=== PATIENT | female | born 1925 | race Caucasian/White ===

== ENCOUNTER 2016-09-14 10:27 | Inpatient (IN) | payer MEDICARE, BC ==
[~2016-09-14] VITALS: Ht 154.9 cm; Wt 53.1 kg
[2016-09-14] MEDS ORDERED: IV NS 0.9% 500 ML BAG IV ONE (10:30)
--- NOTE | 2016-09-14 10:33 | NUR ---
BIB RA FROM HOME FOR SYNCOPE, ASSISTED TO GROUND, PATIENT HAD NO TRAUMA, PATIENT IS VERBALLY RESPONSIVE BUT CONFUSED WITH BASELINE DEMENTIA, PATIENT IS PLACED ON BED WITH MONITOR, NO RESPIRATORY DISTRESS, NO COMPLAINTS OF CHEST PAIN, MD AT BEDSIDE UPON ARRIVAL, WILL CONTINUE TO MONITOR CLOSELY.
[2016-09-14] MEDS ORDERED: IV NS 0.9% 500 ML IV ONE (10:34)
[2016-09-14] MEDS ORDERED: IV SET PRIMARY 1 EA INFUS.SET MC ONE (10:34)
[2016-09-14 10:46] LABS: BASOPHILS # (AUTO) 0.1 /CMM (0.0-0.2); BASOPHILS % (AUTO) 0.4 % (0.0-2.0); EOSINOPHILS # (AUTO) 0.1 /CMM (0.0-0.7); EOSINOPHILS % (AUTO) 0.4 % (0.0-6.0); HEMATOCRIT 41 % (33-45); HEMOGLOBIN 13.4 g/dL (11.5-14.8); LYMPHOCYTES # (AUTO) 1.4 /CMM (0.8-4.8); LYMPHOCYTES % (AUTO) 8.7 % (20.0-44.0); MEAN CORPUSCULAR HEMOGLOBIN 26 PG (26.0-33.0); MEAN CORPUSCULAR HGB CONC 33 g/dl (31.0-36.0); MEAN CORPUSCULAR VOLUME 77 fL (82-100); MONOCYTES # (AUTO) 1.5 /CMM (0.1-1.30); MONOCYTES % (AUTO) 9.3 % (2.0-12.0); NEUTROPHILS # (AUTO) 13.5 /CMM (1.8-8.9); NEUTROPHILS % (AUTO) 81.2 % (43.0-81.0); PLATELET COUNT (AUTO) 376 /CMM (150-450); RDW COEFFICIENT OF VARIATION 15.2 (11.5-15.0); RED BLOOD CELL COUNT(AUTO) 5.25 MIL/uL (4.0-5.2); WHITE BLOOD COUNT (AUTO) 16.6 K/uL (4.3-11.0)
[2016-09-14 11:07] LABS: CALCIUM, SERUM 9.4 mg/dL (8.5-10.1); CARBON DIOXIDE 26 mmol/L (21-32); CHLORIDE 100 mmol/L (98-107); GLUCOSE 162 mg/dL (74-106); POTASSIUM 3.8 mmol/L (3.5-5.1); SODIUM SERUM 136 mmol/L (136-145); UREA NITROGEN, BLOOD 17 mg/dL (7-18)
--- NOTE | 2016-09-14 11:08 | NUR ---
SPOKE WITH DAUGHTER, NO HOUSEKEEPING MANAGER WILL BE VISITING PATIENT, SON IN LAW WILL BE VISITING FROM [place] SOON POSSIBLE
[2016-09-14 11:11] LABS: INR 1.04 (0.87-1.13); PROTHROMBIN TIME 10.8 SECS (9.5-12.7)
[2016-09-14 11:12] LABS: APPEARANCE,URINE Clear (CLEAR); BILIRUBIN,URINE Negative (NEGATIVE); BLOOD, URINE Trace-intact Ery/uL (NEGATIVE); COLOR,URINE Yellow (YELLOW); KETONES,URINE Negative (NEGATIVE); LEUKOCYTE ESTERASE ,URINE Negative (NEGATIVE); NITRITE, URINE Negative (NEGATIVE); PROTEIN,URINE 30 mg/dl (NEGATIVE); UGLUCOSE Negative (NEGATIVE)
[2016-09-14 11:12] LABS: ALANINE AMINOTRANSFERASE 10 U/L (12-78); ALBUMIN 3.2 g/dL (3.4-5.0); ALKALINE PHOSPHATASE 69 U/L (46-116); ASPARTATE AMINOTRANSFERASE 15 U/L (15-37); BILIRUBIN,DIRECT 0.1 mg/dL (0.0-0.2); BILIRUBIN,TOTAL 0.6 mg/dL (0.2-1.0); TOTAL PROTEIN, SERUM 8.6 g/dL (6.4-8.2)
[2016-09-14] MEDS ORDERED: DONE5TAB34 PO (11:13)
[2016-09-14] MEDS ORDERED: SERT25TA PO (11:13)
[2016-09-14] MEDS ORDERED: ATOR10TA PO (11:13)
[2016-09-14] MEDS ORDERED: LEVO88TA5 PO (11:13)
[2016-09-14] MEDS ORDERED: MEMA10TA PO (11:13)
[2016-09-14 11:14] LABS: TROPONIN I < 0.017 ng/mL (0.00-0.056)
[2016-09-14 11:18] LABS: BACTERIA,URINE Few /HPF (None Seen); SQUAMOUS EPITHELIAL CELL,UR Few /HPF (None Seen)
--- NOTE | 2016-09-14 11:22 | NUR ---
CALLED NURSING SUP. FOR TELE BED
--- NOTE | 2016-09-14 12:20 | NUR ---
CALLED [facility] [phone] KENIA PAGED
[2016-09-14 12:26] LABS: LYMPHOCYTES % (MANUAL) 7 % (16-48); MONOCYTES % (MANUAL) 3 % (0-11.0); NEUTROPHILS % (MANUAL) 90 (42-76)
--- NOTE | 2016-09-14 13:00 | NUR ---
RN INITIAL NOTES PT IN BED, A/O X1, CONFUSED, FOLLOWS COMMANDS. ON RA, TOLERATING WELL, NO SOB, NO SIGNS OF DISTRESS/PAIN. SKIN CDI, NO OPEN WOUNDS. IV ON LAC 20G, CDI, NO SIGNS OF INFECTION/INFILTRATION. CALL LIGHT WITHIN EASY REACH, SAFETY MEASURES MAINTAINED, WILL CONTINUE TO MONITOR AND FOLLOW MD ORDERS. PT IN OVERALL STABLE CONDITION. STEP SON AT BEDSIDE.
[2016-09-14 13:17] VITALS: BP 151/80
[2016-09-14] MEDS ORDERED: IV SET PRIMARY PUMP SET 1 EA INFUS.SET MC ONE (13:37)
[2016-09-14] MEDS ORDERED: POTASSIUM CHLORIDE 20 MEQ TAB.PRT.SR PO SCH (14:00)
[2016-09-14 14:07] LABS: MAGNESIUM 2.1 mg/dL (1.8-2.4); PHOSPHORUS 3.8 mg/dL (2.5-4.9)
[2016-09-14 14:34] LABS: THYROID STIMULATING HORMONE 1.338 uIU/mL (0.358-3.74)
[2016-09-14 16:00] VITALS: BP 107/55
[2016-09-14] MEDS: MEMANTINE HCL 5 MG TABLET PO SCH (17:02)
[2016-09-14] MEDS: IV NS 0.9% 1,000 ML IV PRN (17:42)
[2016-09-14] MEDS ORDERED: SERTRALINE HCL 25 MG TABLET PO SCH (18:00)
--- NOTE | 2016-09-14 19:27 | NUR ---
RN CLOSING NOTES ALL MD ORDERS CARRIED OUT, IV CDI, NO SIGNS OF INFECTION/INFILTRATION, RESTRAINTS IN PLACE, TWO FINGER SPACE, GOOD CIRCULATION, CALL LIGHT WITHIN EASY REACH, SAFETY MEASURES MAINTAINED, REPORT GIVEN TO NIGHT NURSE FOR LUCIEN.
--- NOTE | 2016-09-14 19:30 | NUR ---
AVIATION SAFETY TECHNICIAN INITIAL NOTE PT RECEIVED IN BED SLEEPING WITH GRANDDAUGHTER AT BEDSIDE. A/O X1 WITH CONFUSION. NOTED WITH BILATERAL SOFT WRIST RESTRAINTS. ASSESSED CIRCULATION, CAP REFILL AND NO DISCOLORATION NOTED. PT REPOSITIONED FOR COMFORT. VITAL SIGNS TAKEN. NO C/O PAIN AT THIS TIME. IV SITE INTACT, FLUSHING AND PATENT. BED IN LOWEST POSITION, LOCKED AND BED ALARM ON. WILL CONTINUE TO MONITOR.
[2016-09-14 20:00] VITALS: BP 116/54
[2016-09-15] VITALS: BP 123/61
[2016-09-15] MEDS ORDERED: IV NS 0.9% 1,000 ML ONE (01:17)
[2016-09-15] MEDS: IV NS 0.9% 1,000 ML IV PRN (01:25)
[2016-09-15 04:00] VITALS: BP 137/73
--- NOTE | 2016-09-15 04:50 | NUR ---
RN NOTE RECEIVED PT FROM EJLENA CHAY VILLALTA FOR CONTINUITY OF CARE.
--- NOTE | 2016-09-15 04:54 | NUR ---
RN NOTE TRANSFER OF CARE TO OWEN CARTWRIGHT. GAVE REPORT FOR CONTINUITY OF CARE.
--- NOTE | 2016-09-15 05:00 | NUR ---
RN INITIAL NOTE RECEIVED PT IN NO ACUTE DISTRESS IN BED. PT IS A/O X 1 WITH PERIODS OF CONFUSION. PT IS ON RA AND TOLERATING WELL WITH O2 SAT @ 98%. PT NOT C/O ANY SOB, DIFFICULTY BREATHING OR PAIN AT THIS TIME. PT IS IN RESTRAINTS WITH POSITIVE CIRCULATION CHECK. WILL DO FREQUENT CHECKS TILL CHANGE OF SHIFT. PT HAS LAC 22G THAT IS CLEAN DRY INTACT AND PATENT WITH NS @ 100ML/HR. BED IN LOW LOCK POSITION WITH RIALS UP X 2. CALL LIGHT WITHIN REACH AND ALL SAFETY MEASURES ENSURED AND CARRIED OUT. WILL CONTINUE TO MONITOR PT.
[2016-09-15 06:42] LABS: BASOPHILS % (AUTO) 0.3 % (0.0-2.0); EOSINOPHILS # (AUTO) 0.1 /CMM (0.0-0.7); EOSINOPHILS % (AUTO) 1.1 % (0.0-6.0); HEMATOCRIT 34 % (33-45); HEMOGLOBIN 11.2 g/dL (11.5-14.8); LYMPHOCYTES % (AUTO) 18.2 % (20.0-44.0); MEAN CORPUSCULAR HEMOGLOBIN 26 PG (26.0-33.0); MEAN CORPUSCULAR HGB CONC 34 g/dl (31.0-36.0); MEAN CORPUSCULAR VOLUME 78 fL (82-100); MONOCYTES # (AUTO) 1.4 /CMM (0.1-1.30); MONOCYTES % (AUTO) 13.4 % (2.0-12.0); NEUTROPHILS # (AUTO) 7.2 /CMM (1.8-8.9); PLATELET COUNT (AUTO) 292 /CMM (150-450); RDW COEFFICIENT OF VARIATION 16.8 (11.5-15.0); RED BLOOD CELL COUNT(AUTO) 4.31 MIL/uL (4.0-5.2); WHITE BLOOD COUNT (AUTO) 10.8 K/uL (4.3-11.0)
[2016-09-15 06:50] LABS: ALANINE AMINOTRANSFERASE 14 U/L (12-78); ALBUMIN 2.3 g/dL (3.4-5.0); ALKALINE PHOSPHATASE 55 U/L (46-116); ASPARTATE AMINOTRANSFERASE 14 U/L (15-37); BILIRUBIN,TOTAL 0.5 mg/dL (0.2-1.0); CALCIUM, SERUM 8.8 mg/dL (8.5-10.1); CARBON DIOXIDE 26 mmol/L (21-32); CHLORIDE 109 mmol/L (98-107); CREATININE 0.7 mg/dL (0.6-1.3); GLUCOSE 82 mg/dL (74-106); MAGNESIUM 2.1 mg/dL (1.8-2.4); PHOSPHORUS 3.2 mg/dL (2.5-4.9); POTASSIUM 4.1 mmol/L (3.5-5.1); SODIUM SERUM 141 mmol/L (136-145); TOTAL PROTEIN, SERUM 6.9 g/dL (6.4-8.2); UREA NITROGEN, BLOOD 12 mg/dL (7-18)
[2016-09-15 06:51] LABS: TROPONIN I < 0.017 ng/mL (0.00-0.056)
[2016-09-15] MEDS ORDERED: LEVOTHYROXINE SODIUM 88 MCG TABLET PO SCH (07:30)
--- NOTE | 2016-09-15 07:35 | NUR ---
RN CLOSING NOTE PT REMAINS IN NO ACUTE DISTRESS IN BED. PT DID NOT HAVE ANY SIGNIFICANT CHANGE IN SHIFT. ALL NEEDS MET, ALL ORDERS CARRIED OUT. WILL ENDORSE CARE TO AM RN FOR CONTINUITY OF CARE.
[2016-09-15 08:00] VITALS: BP 123/64
[2016-09-15 08:04] LABS: THYROID STIMULATING HORMONE 0.535 uIU/mL (0.358-3.74)
[2016-09-15] MEDS: MEMANTINE HCL 5 MG TABLET PO SCH (08:11)
[2016-09-15] MEDS ORDERED: ATORVASTATIN 10 MG TABLET PO SCH (09:00)
[2016-09-15] MEDS ORDERED: DONEPEZIL 5 MG TABLET PO SCH (09:00)
--- NOTE | 2016-09-15 09:18 | NUR ---
RN NOTE FOUND PATIENT WITH IV REMOVED AT START OF SHIFT- UNKNOWN HOW RESTRAINTS LOOSENED, PATIENT REMOVED. DAUGHTER AT BEDSIDE. INFORMED DR. BOYLE DURING MD AM ROUNDS. SAID PATIENT IS OK WITHOUT IV AND D/C FLUIDS.
[2016-09-15 12:00] VITALS: BP_SYST 110; BP_SYST 117; BP_DIAS 50; BP_DIAS 59; BP_DIAS 64
--- NOTE | 2016-09-15 13:09 | NUR ---
discharge note Patient deemed stable for discharge. latest vital signs are WNL. orthostatic BP measured, relayed to tube coater and recorded. patient daughter is at the bedside providing continuous care this shift. Per family, patient's had an acute stroke and has AMS cannot care for the patient. Now the daughter cares for patient. daughter said they have a aquatic life laborer care center manager and a walker at home. patient's o2 sat on room air is stable. patient does not need home health nurse. patient had no respiratory distress this shift and patient had adequate urine output and a bowel movement this shift. patient ambulated with walker and PT. all paperwork including lab results, MD notes, education and medication was provided with extensive education and instructions provided. patient's daughter verbalized understanding. daughter name is Princess Ruffin and phone number is [phone]. patient's daughter refused vaccines. no IV access. patient and daughter have been provide with a taxi voucher. continuing discharge planning at this time. will document further information.
--- NOTE | 2016-09-15 14:00 | NUR ---
PATIENT LEFT ACCOMPANIED BY DAUGHTER AND V BELT CURER IN WHEELCHAIR. PHOTO OF BL LE PLACED IN CHART FOR DISCOLORATION PRESENT ON ADMISSION PER DAUGHTER BEING SEEN BY DISPENSARY CLERK OUTPATIENT. NO COMPLICATIONS UPON DISCHARGE. DAUGHTER EXPRESSED APPRECIATION AND HAS GOOD UNDERSTANDING OF PATIENT'S HEALTH.
[2016-09-17 08:08] LABS: *SPE A/G RATIO 0.8 (0.7-1.7); *SPE ALBUMIN 2.9 g/dL (2.9-4.4); *SPE ALPHA-1-GLOBULIN 0.4 g/dL (0.0-0.4); *SPE BETA GLOBULIN 0.8 g/dL (0.7-1.3); *SPE GLOBULIN, TOTAL 3.6 g/dL (2.2-3.9); *SPE M-SPIKE Not Observed g/dL (Not Observed); *SPE PROTEIN TOTAL 6.5 g/dL (6.0-8.5); *SPEGAMMA GLOBULIN 1.3 g/dL (0.4-1.8)
== END 2016-09-15 14:10 | disposition home or self-care (01) | DRG 684 ==
LOC: ER 10:29 → TELE1 12:43
PROVIDERS: ADMIT Internal Medicine Nephrology; ATTEND Internal Medicine Nephrology
DX: N17.0 Acute kidney failure with tubular necrosis (principal); E03.9 Hypothyroidism, unspecified; D72.829 Elevated white blood cell count, unspecified; E86.9 Volume depletion, unspecified; M81.0 Age-related osteoporosis without current pathological fracture; G30.9 Alzheimer's disease, unspecified; F02.80 Dementia in other diseases classified elsewhere, unspecified severity, without behavioral disturbance, psychotic disturbance, mood disturbance, and anxiety; I10 Essential (primary) hypertension; Z85.820 Personal history of malignant melanoma of skin; D50.9 Iron deficiency anemia, unspecified; I35.0 Nonrheumatic aortic (valve) stenosis; I34.0 Nonrheumatic mitral (valve) insufficiency; R55 Syncope and collapse
CPT/HCPCS: 36415; 70450-TC; 71010-TC; 80048-TC; 80053-TC; 80061-TC; 80076-TC; 81000-TC; 82306; 82728-TC; 83540-TC; 83605-TC; 83735-TC; 84100-TC; 84155; 84165; 84439-TC; 84443-TC; 84484-TC; 85025-TC; 85730-TC; 87040-TC; 87081-TC; 87086-TC; 93307-TC; 93880-TC; A4606; J7030; J7040; Z7610

== ENCOUNTER 2016-11-26 14:37 | Emergency (ER) | payer MEDICARE, BC ==
[~2016-11-26] VITALS: Ht 162.6 cm; Wt 53.1 kg
[~2016-11-26 14:37] MED LIST: ATOR10TA PO; DONE5TAB34 PO; LEVO88TA5 PO; MEMA10TA PO; SERT25TA PO
--- NOTE | 2016-11-26 14:38 | NUR ---
PT BIBRA FROM SNF TO ER BED 14. PER REPORT, WITNESSED SYNCOPE. WAS ASSISTED TO THE GROUND. NO OBVIOUS TRAUMA NOTED. HYPOTENSIVE BELT SANDER STONE. HX OF DEMENTIA. ALTERED AWAKE. PT IS COVERED W/ FECES BELT SANDER STONE. AWAITINGMD EVAL.
--- NOTE | 2016-11-26 14:40 | NUR ---
PT GIVEN BED BATH. GOWNED AND PLACED ON MONITOR. STILL HYPOTENSIVE. WILL CONTINUE TO MONITOR.
--- NOTE | 2016-11-26 14:54 | NUR ---
DR FRITZ AT BEDSIDE FOR EVAL.
--- NOTE | 2016-11-26 14:59 | NUR ---
IV LINE STARTED BLOOD DRAWN AND SENT TO LAB.
[2016-11-26] MEDS ORDERED: diphenhydrAMINE HCL 50 MG/ML VIAL ONE (15:04)
[2016-11-26 15:05] LABS: BASOPHILS # (AUTO) 0.3 /CMM (0.0-0.2); BASOPHILS % (AUTO) 3.5 % (0.0-2.0); EOSINOPHILS # (AUTO) 0.1 /CMM (0.0-0.7); EOSINOPHILS % (AUTO) 0.6 % (0.0-6.0); HEMATOCRIT 40 % (33-45); HEMOGLOBIN 12.9 g/dL (11.5-14.8); LYMPHOCYTES # (AUTO) 2.2 /CMM (0.8-4.8); LYMPHOCYTES % (AUTO) 24.3 % (20.0-44.0); MEAN CORPUSCULAR HEMOGLOBIN 25 PG (26.0-33.0); MEAN CORPUSCULAR HGB CONC 32 g/dl (31.0-36.0); MEAN CORPUSCULAR VOLUME 79 fL (82-100); MONOCYTES # (AUTO) 0.9 /CMM (0.1-1.30); MONOCYTES % (AUTO) 9.4 % (2.0-12.0); NEUTROPHILS # (AUTO) 5.7 /CMM (1.8-8.9); NEUTROPHILS % (AUTO) 62.2 % (43.0-81.0); PLATELET COUNT (AUTO) 348 /CMM (150-450); RDW COEFFICIENT OF VARIATION 14.6 (11.5-15.0); RED BLOOD CELL COUNT(AUTO) 5.12 MIL/uL (4.0-5.2); WHITE BLOOD COUNT (AUTO) 9.2 K/uL (4.3-11.0)
[2016-11-26] MEDS ORDERED: LORAZEPAM INJ 2 MG/ML VIAL ONE (15:05)
[2016-11-26] MEDS: LORAZEPAM INJ 2 MG/ML VIAL IVP ONE (15:05)
--- NOTE | 2016-11-26 15:14 | NUR ---
RADIOLOGY AT BEDSIDE FOR CHEST XRAY.
[2016-11-26 15:15] LABS: CALCIUM, SERUM 9.2 mg/dL (8.5-10.1); CARBON DIOXIDE 27 mmol/L (21-32); CHLORIDE 105 mmol/L (98-107); CREATININE 1.1 mg/dL (0.6-1.3); GLUCOSE 166 mg/dL (74-106); POTASSIUM 4.1 mmol/L (3.5-5.1); SODIUM SERUM 141 mmol/L (136-145); UREA NITROGEN, BLOOD 23 mg/dL (7-18)
[2016-11-26] MEDS: diphenhydrAMINE HCL 50 MG/ML VIAL IM ONE (15:15)
--- NOTE | 2016-11-26 15:15 | NUR ---
PT TO RADIOLOGY FOR HEAD CT SCAN VIA [facility] [place].
[2016-11-26 15:17] LABS: INR 0.99 (0.87-1.13); PROTHROMBIN TIME 10.3 SECS (9.5-12.7)
[2016-11-26 15:20] LABS: ALANINE AMINOTRANSFERASE 14 U/L (12-78); ALBUMIN 3.3 g/dL (3.4-5.0); ALKALINE PHOSPHATASE 74 U/L (46-116); ASPARTATE AMINOTRANSFERASE 17 U/L (15-37); BILIRUBIN,DIRECT 0.1 mg/dL (0.0-0.2); BILIRUBIN,TOTAL 0.2 mg/dL (0.2-1.0); TOTAL PROTEIN, SERUM 7.8 g/dL (6.4-8.2)
[2016-11-26 15:22] LABS: TROPONIN I < 0.017 ng/mL (0.00-0.056)
[2016-11-26] MEDS ORDERED: SERT25TA PO (15:59)
[2016-11-26] MEDS ORDERED: ACET-2605 PO (15:59)
--- NOTE | 2016-11-26 16:20 | NUR ---
PATIENT WILL BE ADMITTED INTO ROOM 324-2.
--- NOTE | 2016-11-26 17:26 | NUR ---
Patient discharged to home in stable condition. Written and verbal after care instructions given. Patient verbalizes understanding of instruction.IV removed. Catheter intact and site benign. Pressure and 4x4 applied to site. No bleeding noted.
[2016-11-26 17:27] VITALS: BP 103/67
== END 2016-11-26 17:28 | disposition home or self-care (01) ==
LOC: ER 14:39
DX: R55 Syncope and collapse (principal); G30.9 Alzheimer's disease, unspecified; F02.80 Dementia in other diseases classified elsewhere, unspecified severity, without behavioral disturbance, psychotic disturbance, mood disturbance, and anxiety; I10 Essential (primary) hypertension; M81.0 Age-related osteoporosis without current pathological fracture; Z85.820 Personal history of malignant melanoma of skin
CPT/HCPCS: 36415; 70450-TC; 71010-TC; 80048-TC; 80076-TC; 84484-TC; 85025-TC; 85730-TC; 87081-TC; A4606; A6403; J1200; J2060; Z7610

== ENCOUNTER 2016-12-23 10:17 | Emergency (ER) | payer MEDICARE, BC ==
[~2016-12-23] VITALS: Ht 152.4 cm; Wt 49.9 kg
[~2016-12-23 10:17] MED LIST changes: +ACET-2605 PO
--- NOTE | 2016-12-23 10:21 | NUR ---
BBRA [id number] FROM HOME FOR R ELBOW PAIN S/P SLIP FROM BED AT 0200 THIS AM DENIES KO
--- NOTE | 2016-12-23 10:49 | NUR ---
BRANCH OFFICE ADMINISTRATOR AT BEDSIDE
--- NOTE | 2016-12-23 12:15 | NUR ---
IV removed. Catheter intact and site benign. Pressure and 4x4 applied to site. No bleeding noted.
--- NOTE | 2016-12-23 12:15 | NUR ---
Patient discharged to home in stable condition. Written and verbal after care instructions given. Patient verbalizes understanding of instruction.
[2016-12-23 12:16] VITALS: BP 117/63
== END 2016-12-23 12:32 | disposition home or self-care (01) ==
LOC: ER 10:18
DX: S59.901A Unspecified injury of right elbow, initial encounter (principal); I10 Essential (primary) hypertension; G30.9 Alzheimer's disease, unspecified; F03.90 Unspecified dementia, unspecified severity, without behavioral disturbance, psychotic disturbance, mood disturbance, and anxiety; M81.0 Age-related osteoporosis without current pathological fracture; Z85.820 Personal history of malignant melanoma of skin; W01.0XXA Fall on same level from slipping, tripping and stumbling without subsequent striking against object, initial encounter; Y93.89 Activity, other specified; Y92.89 Other specified places as the place of occurrence of the external cause; Y99.8 Other external cause status
CPT/HCPCS: 73080-TC; A4606; J2270; Z7610